=== PATIENT | female | born 1975 | race Caucasian/White ===

== ENCOUNTER 2018-09-08 14:17 | Outpatient (CLI) | payer OTHER ==
[2018-09-08 16:11] LABS: THYROID STIMULATING HORMONE 3.62 uIU/mL (0.34-5.60)
[2018-09-08 16:39] LABS: FOLLICLE STIMULATING HORMONE 19.46 mIU/mL
== END 2018-09-08 14:18 | disposition home or self-care (01) ==
LOC: LAB 14:17
PROVIDERS: ATTEND Registered Nurse
DX: N91.1 Secondary amenorrhea (principal)
CPT/HCPCS: 36415; 82670; 83001; 84443